=== PATIENT | male | born 1995 | race Two or more races ===

== ENCOUNTER 2019-12-19 05:56 | Day surgery (SDC) | payer OTHER ==
[2019-12-19] VITALS (10 sets, daily range): BP systolic 118–129; BP diastolic 73–89
[~2019-12-19] VITALS: Ht 182.9 cm; Wt 90.7 kg
[2019-12-19] MEDS ORDERED: oxyCONTIN 20mg tab ORAL ONE (06:00)
[2019-12-19] MEDS ORDERED: celeBREX 200mg Cap **SURGERY PATIENTS ONLY ORAL ONE (06:00)
[2019-12-19] MEDS ORDERED: ceFAZolin 1gm IVPB IVPB ONE ×2 (06:00)
[2019-12-19] MEDS ORDERED: Midazolam 2mg/2ml Inj ONE (06:57)
[2019-12-19] MEDS ORDERED: fentaNYL 100 mcg/2 mL IV ONE (06:57)
[2019-12-19] MEDS ORDERED: Ketorolac 30mg Inj ONE ×2 (07:03→07:13)
[2019-12-19] MEDS ORDERED: Lidocaine 1% MPF 10mg/ml 5ml ONE (07:03)
[2019-12-19] MEDS ORDERED: Propofol 200mg/20ml IV ONE (07:03)
[2019-12-19] MEDS ORDERED: Kenalog-40 1ml Vial ONE (07:13)
[2019-12-19] MEDS ORDERED: Duramorph PF 5mg/10ml amp ONE (07:13)
[2019-12-19] MEDS ORDERED: Bupivacaine 0.25% Inj 30ml INJ ONE (07:14)
[2019-12-19] MEDS ORDERED: Lidocaine 1% 10mg/ml/Epi 0.005mg/ml 30ml vial INJ ONE (07:14)
--- NOTE | 2019-12-19 07:29 | Pre-Procedure Note/Attestation ---
Pre-Procedure Note/Attestation Complete Prior to Procedure Planned Procedure: right Procedure Narrative: knee diagnostic arthroscopic possible menisectomy Indications for Procedure Pre-Operative Diagnosis: right knee meniscus tear Attestation I attest that I discussed the nature of the procedure; its benefits; risks and complications; and alternatives (and the risks and benefits of such alternatives ), prior to the procedure, with the patient (or the patient's legal telecommunications sales representative). I attest that, if there was a reasonable possibility of needing a blood transfusion, the patient (or the patient's legal telecommunications sales representative) was given the [facility] standardized written summary, pursuant to the [place] Blood Safety Act ([place] Health and Safety Code # 1645, as amended). I attest that I re-evaluated the patient just prior to the surgery and that there has been no change in the patient's H&P, except as documented below: Sgeun Pham MD Dec 19, 2019 07:29
--- NOTE | 2019-12-19 07:29 | Operative Note - PDOC ---
Operative Note Operative Note Pre-op Diagnosis: right knee meniscus tear Procedure: see op report Post-op Diagnosis: same as pre-op plus Operative Findings: consistent w/pre-op dx studies Anesthesia: MAC Specimen: none Complications: none Condition: stable Estimated Blood Loss: none Implant(s) used?: No Segun Pham MD Dec 19, 2019 07:29
[2019-12-19] MEDS ORDERED: D5 1/2NS 1,000 ML IV SCH (07:30)
[2019-12-19] MEDS ORDERED: NS Irrig 4000ml IRRIG ONE (07:30)
[2019-12-19] MEDS ORDERED: LR 1000ml ONE (07:30)
[2019-12-19] MEDS ORDERED: HYDROcodone/Acetamin 5/325 tab ORAL PRN (07:30)
[2019-12-19] MEDS ORDERED: Tylenol #3 tab (300mg/30mg) ORAL PRN (07:30)
[2019-12-19] MEDS ORDERED: HYDROmorphone 1mg/ml Carpuject SUBQ PRN (07:30)
[2019-12-19] MEDS ORDERED: Duramorph PF 5mg/10ml amp EPIDUR ONE (07:42)
[2019-12-19] MEDS ORDERED: Ketorolac 30mg Inj IV PRN (08:00)
[2019-12-19] MEDS ORDERED: Meperidine 25mg/0.5ml Inj (FOR RIGORS ONLY) IV PRN (08:00)
[2019-12-19] MEDS ORDERED: LR 1000ml 1,000 ML IVLG SCH (08:00)
[2019-12-19] MEDS ORDERED: Metoclopramide 10mg/2ml Inj IVP PRN (08:00)
[2019-12-19] MEDS ORDERED: DiphenhydrAMINE 50mg/ml Inj IVP PRN (08:00)
--- NOTE | 2019-12-19 08:00 | Anethesia Preoperative Eval ---
Anesthesia Pre-op PMH/ROS General Date of Evaluation: Dec 19, 2019 Time of Evaluation: 07:12 Anesthesiologist: Lizette ASA Score: ASA 2 Mallampati Score Class I : Soft palate, uvula, fauces, pillars visible Class II: Soft palate, uvula, fauces visible Class III: Soft palate, base of uvula visible Class IV: Only hard plate visible Mallampati Classification: Class II Surgeon: Ankit Diagnosis: R knee pain Surgical Procedure: R knee scope Anesthesia History: none Family History: no anesthesia problems Allergies: Coded Allergies: No Known Allergies (Unverified , 12/19/19) Medications: see eMAR Patient NPO?: Yes Past Medical History Cardiovascular: Denies: HTN, CAD, IA, valve dz, arrhythmia, other Pulmonary: Denies: asthma, COPD, ALEM, other Gastrointestinal/Genitourinary: Reports: GERD - mild; Denies: CRI, ESRD, other Neurologic/Psychiatric: Denies: dementia, CVA, depression/anxiety, TIA, other Endocrine: Denies: DM, hypothyroidism, steroids, other HEENT: Denies: cataract (L), cataract (R), glaucoma, BUR[place] (L), BURNS [place] (R), other Hematology/Immune: Denies: anemia, DVT, bleeding disorder, other Musculoskeletal/Integumentary: Denies: OA, RA, DJD, DDD, edema, other PMH Narrative: as above PSxH Narrative: None Anesthesia Pre-op Phys. Exam Physician Exam Last Vital Signs Date Time Temp Pulse Resp B/P (MAP) Pulse Ox O2 Delivery O2 Flow Rate FiO2 12/19/19 06:27 Room Air 12/19/19 06:26 97.7 87 18 128/77 98 Constitutional: NAD Neurologic: CN 2-12 intact Cardiovascular: no M/R/G Respiratory: CTA Gastrointestinal: S/NT/ND Airway Exam Mallampati Score: Class II MO: full Neck: flexible ROM: full Teeth: intact Dentures: no upper, no lower Anesthesia Pre-op A/P Labs see chart Studies Pre-op Studies: EKG - NSR Risk Assessment & Plan Assessment: ASA 2 Plan: GA with LMA Status Change Before Surgery: No Pre-Antibiotics Drug: Ancef 2gr. Given Within 1 Hr of Incision: Yes Time Given: 08:02 Alex Bauer MD Dec 19, 2019 08:00
--- NOTE | 2019-12-19 08:41 | Immediate Post-Op Evaluation ---
Immediate Post-Op Evalulation Immediate Post-Op Evalulation Procedure: R knee arthroscopy meniscectomy Date of Evaluation: Dec 19, 2019 Time of Evaluation: 08:40 IV Fluids: 800 Blood Products: none Estimated Blood Loss: min Urinary Output: none Blood Pressure Systolic: 116 Blood Pressure Diastolic: 57 Pulse Rate: 86 Respiratory Rate: 20 O2 Sat by Pulse Oximetry: 99 Temperature (Fahrenheit): 98.1 Pain Score (1-10): 1 Nausea: No Vomiting: No Complications none Patient Status: reacts, patent, none Hydration Status: adequate Alex Bauer MD Dec 19, 2019 08:41
--- NOTE | 2019-12-19 10:40 | 48 Hour Post Anesthesia Eval ---
Post Anesthesia Evaluation Procedure: R knee arthroscopy meniscectomy Date of Evaluation: Dec 19, 2019 Time of Evaluation: 10:39 Blood Pressure Systolic: 118 0: 76 Pulse Rate: 68 Respiratory Rate: 18 Temperature (Fahrenheit): 97.6 O2 Sat by Pulse Oximetry: 98 Airway: patent Nausea: No Vomiting: No Pain Intensity: 1 Hydration Status: adequate Cardiopulmonary Status: stable Mental Status/LOC: patient returned to baseline Follow-up Care/Observations: n/a Post-Anesthesia Complications: none Follow-up care needed: ready to discharge Alex Bauer MD Dec 19, 2019 10:40
--- NOTE | 2019-12-22 22:00 | Operative Note - Dictated ---
DATE OF OPERATION: 12/19/2019 PREOPERATIVE DIAGNOSIS: Right knee medial meniscus tear. POSTOPERATIVE DIAGNOSES: 1. Intrameniscal degeneration of the posterior horn medial meniscus. 2. Hypertrophic synovial tissue/medial plica. PROCEDURE: 1. Right knee diagnostic arthroscopy. 2. Right knee medial and lateral patellofemoral compartment. SURGEON: Segun Pham M.D. ANESTHESIA: MAC. INDICATION FOR PROCEDURE: The patient is a pleasant gentleman who has had progressive right knee pain. He had tried conservative treatment and MRI, which showed a meniscal tear on the medial side. He continued to have limitation of activities and then continued to fail conservative treatment. He elected to undergo right knee diagnostic arthroscopy and possible meniscectomy based on intraoperative findings. Risks, limitations, expectations, and complications of procedure were discussed in detail. All questions were addressed. DESCRIPTION OF PROCEDURE: After informed consent was obtained, the patient was brought to the operating room. The patient was placed under monitored anesthesia control. Right leg was prepped and draped in a sterile manner. Time-out was performed. An inferolateral stab incision was then made. Trocar was introduced into the knee joint. There was hypertrophic synovial tissue, making visualization of patellofemoral compartment difficult. There was a medial plica that was attached abutting the medial femoral condyle. Medial gutter was free of any loose bodies. Medial compartment was entered and medial working portal was established. The posterior horn medial meniscus was probed and there was concern for injury of posterior horn medial meniscus tear and felt that it was grossly intact, continued to be more intrameniscal degeneration of the posterior horn tear. There is no chondral damage. Synovectomy was extended into the anterior compartment, medial compartment, intercondylar notch, and lateral compartment. ACL was probed and noted intact. Lateral compartment was entered, free from the meniscal chondral damage. At this point, camera was repositioned in the patellofemoral compartment, excision of medial plica and fat pad was completed. Once that was done, the instruments were removed. Portal sites were closed with 3-0 Monocryl sutures. Steri-Strips and a sterile dressing were applied. ESTIMATED BLOOD LOSS: None. COMPLICATIONS: None. SPECIMENS: None. IMPLANTS: None. Segun Pham M.D. DR: LES JOB#: [id number] CC:
== END 2019-12-19 09:55 | disposition home or self-care (01) ==
LOC: SUR 05:56
DX: M67.261 Synovial hypertrophy, not elsewhere classified, right lower leg (principal); K21.9 Gastro-esophageal reflux disease without esophagitis
CPT/HCPCS: 29876; J0690; J1885; J2250; J2405; J2704; J3010; J3301; J3490; J7120; 94003; 94150